=== PATIENT | male | born 1985 | race Two or more races ===

== ENCOUNTER 2018-12-13 05:02 | Emergency (ER) | payer SELFPAY ==
[~2018-12-13] VITALS: Ht 188 cm; Wt 158.8 kg
[2018-12-13] MEDS ORDERED: IPRATROPIUM NEB FS 0.5 MG/2.5 ML AMPUL.NEB ONE (06:24)
[2018-12-13] MEDS ORDERED: ALBUTEROL FS 2.5 MG/3 ML VIAL.NEB ONE (06:24)
[2018-12-13] MEDS ORDERED: IPRATROPIUM NEB FS 0.5 MG/2.5 ML AMPUL.NEB NEB ONE (06:30)
[2018-12-13] MEDS ORDERED: ALBUTEROL FS 2.5 MG/3 ML VIAL.NEB CONTNEB ONE (06:30)
[2018-12-13] MEDS ORDERED: predniSONE 20 MG TABLET PO ONE (06:30)
[2018-12-13] MEDS ORDERED: predniSONE 20 MG TABLET ONE (06:39)
--- NOTE | 2018-12-13 06:40 | NUR ---
PT PLACED ON BREATHING TREATMENT BY RT
--- NOTE | 2018-12-13 06:44 | NUR ---
SALON/SPA MANAGER BEDSIDE FOR CHEST X RAY
--- NOTE | 2018-12-13 07:32 | NUR ---
REPORT GIVEN TO SENIOR DATA QUALITY ANALYST EDSEL FOR DELMAR.
[2018-12-13 07:40] VITALS: BP 169/99
--- NOTE | 2018-12-13 07:41 | NUR ---
Patient discharged to home in stable condition. Written and verbal after care instructions given. Patient verbalizes understanding of instruction.
== END 2018-12-13 07:42 | disposition home or self-care (01) ==
LOC: ER 05:09
DX: J45.901 Unspecified asthma with (acute) exacerbation (principal); Z87.01 Personal history of pneumonia (recurrent)
CPT/HCPCS: 71045; 94644; 99285; A4606; J7512

== ENCOUNTER 2024-08-20 20:27 | Emergency (ER) | payer MEDICAID ==
[~2024-08-20] VITALS: Ht 182.9 cm; Wt 113.4 kg
[2024-08-20 22:20] VITALS: O2SAT 96
[2024-08-20] MEDS: ALBUTEROL FS 2.5 MG/0.5 ML VIAL.NEB NEB ONE (22:20)
[2024-08-20] MEDS ORDERED: ALBUTEROL FS 2.5 MG/0.5 ML VIAL.NEB ONE (22:27)
[2024-08-20] MEDS ORDERED: ACETAMINOPHEN 325 MG TABLET ONE (22:28)
[2024-08-20] MEDS: ACETAMINOPHEN 325 MG TABLET PO ONE (22:30)
[2024-08-20 22:35] VITALS: O2SAT 99
[2024-08-21 00:37] VITALS: BP 179/104; TEMP 101.7; O2SAT 98
== END 2024-08-21 00:38 | disposition home or self-care (01) ==
LOC: ER 20:48
DX: J06.9 Acute upper respiratory infection, unspecified (principal); R05.9 Cough, unspecified; J45.909 Unspecified asthma, uncomplicated; Z20.822 Contact with and (suspected) exposure to COVID-19
CPT/HCPCS: 71045-TC; 86403-TC; 87070-TC

== ENCOUNTER 2025-08-22 18:42 | Emergency (ER) | payer SELFPAY ==
[~2025-08-22] VITALS: Ht 188 cm; Wt 140.6 kg
[2025-08-22] MEDS: IBUPROFEN 400 MG TABLET PO ONE (20:47)
[2025-08-22] MEDS ORDERED: IBUPROFEN 400 MG TABLET ONE (20:47)
[2025-08-22 23:09] VITALS: BP 142/89; TEMP 98.4; O2SAT 99
== END 2025-08-22 23:09 | disposition home or self-care (01) ==
LOC: ER 18:48
DX: M79.641 Pain in right hand (principal); J45.909 Unspecified asthma, uncomplicated; W18.39XA Other fall on same level, initial encounter; Y93.89 Activity, other specified; Y92.89 Other specified places as the place of occurrence of the external cause; Y99.9 Unspecified external cause status
CPT/HCPCS: 73130-TC; A4649